=== PATIENT | female | born 1945 | race Caucasian/White ===

== ENCOUNTER → 2016-09-11 | Outpatient (CLI) | payer MEDICARE, OTHER ==
[~2016-09-11] MED LIST: AC500T PO; AML5T PO; ASPI-860 PO; ATN50T PO; BUPR100T8 PO; CETI10TA20 PO; DIPH25CA79 PO; DOCU-243 PO; DULO30CA PO; ENAL20TA PO; GBPN300C PO; HYDR-3702 PO; LACT1CAP8 PO; LD5PT TOP; LVT.1T PO; MAGN400O7 PO; MECL25TA3 PO; METF500T4 PO; MULT-593 PO; MULT1CAP27 PO; MV-M1TAB21 PO; OMEP40CA36; ONDAN4ODT PO; POLY17PO2 PO; SERT100T8 PO; SMV20T PO; SPRN25T PO; TRAM-291ED; TRM50T PO; ZOLP12.546 PO; [UNRECOGNIZED DRUG - OTHER] PO; methylPREDNISolone 80 MG/ML (DEPO MEDROL) VIAL IM ONE
--- NOTE | 2016-09-11 13:14 | PAIN MANAGEMENT ---
Date of note: 09/11/2016 Procedure: Epidural steroid injection This is a 70-year-old patient of Dr. Chip Vazquez. The patient presents with a longstanding history of lumbar back pain. She has radicular symptoms primarily in her right leg. She has had previous fusion in her low lumbar spine. Informed consent was achieved for an epidural steroid injection at L5-S1. Orders for procedure verified. Patient denies any bleeding tendencies. After informed consent obtained, the patient was positioned for the lumbar epidural steroid injection. The area was prepped and draped using aseptic technique. The skin and overlying tissues were localized using 3 mL of 1% Preservative-Free lidocaine using a 25-gauge 1.5-inch needle. A 20-gauge Tuohy needle was advanced, using "loss of resistance" technique, to the epidural space. No blood, cerebral spinal fluid, pain, or paresthesia noted on entry of the epidural space. A 1 mL solution of Depo-Medrol 80 mg was injected slowly without mass volume effect. The patient was placed in supine position 15 minutes prior to being released with proper leg strength and vitals. Pre- and post procedure vital signs stable with no sensory or motor deficit noted. Instruction on followup contact and care provided to the patient.
== END ==
LOC: PMC 10:11
PROVIDERS: ATTEND Family Medicine
DX: M51.16 Intervertebral disc disorders with radiculopathy, lumbar region (principal)
CPT/HCPCS: 62322; J1040

== ENCOUNTER 2016-10-03 11:39 | Outpatient (RCR) | payer MEDICARE, OTHER ==
--- NOTE | 2016-10-02 10:26 | PT/OT/ST INITIAL EVALUATION ---
Department of Health and Human Services Form Approved Health Care Financing Administration OMB No. [id number] PLAN OF CARE/ASSESSMENT FOR OUTPATIENT REHABILITATION (Complete for Initial Claims Only) 1. PATIENT'S NAME Mary Card 2. ACC # [id number] [facility]. [facility] [id number] 4. PROVIDER NO. [id number] 5. TYPE: PT 6. PRIOR HOSPITALIZATION None 7. PRIMARY DX BPPV 8. SECONDARY DX Dizziness and decreased balance 9. ONSET DATE 05/14/2015 10. REFERRAL DATE 10/01/2016 11. SOC. DATE 10/01/2016 12. TIME OF EVAL 15:15 12. REFERRING PHYSICIAN Self-referral 13. CHARGES/UNITS Evaluation 14. G CODES CH 15. PRIOR LEVEL OF FUNCTION; PERTINENT HISTORY (Prior therapy results, reason for referral.) S: Reason for referral: The patient was a self-referral to physical therapy for BPPV. The patient had previously been treated for benign paroxysmal positional vertigo in May 2015 and then again in August 2015. Primary Complaint: The patient reports that she had started experiencing dizziness over the last week and feels that it has increased when moving her head or when lying down in bed or getting up out of bed. Occupational and social health history: The patient is retired. Activity level: Not real good. Personal health rating: She rates overall health as fair. Past medical history: Includes arthritis, osteoarthritis, allergies, previous head injury, depression, high blood pressure and thyroid problems. Patient's Goal: The patient's goal for therapy is to stop the dizziness and headache. 16. INITIAL ASSESSMENT/SAFETY PRECAUTIONS/MEDICAL COMPLICATIONS (Level of function at start of care. Be specific, use objective measures, list problems.) O: APPEARANCE, OBSERVATION AND GAIT: The patient is a 70-year-old female. She presents to physical therapy demonstrating slightly unsteady gait and unsteadiness when going from sitting to standing. The patient reports the last time she was in treatment we treated the left side. TODAY'S TREATMENT: Today performed Hallpike and canalith positional maneuvers to both her right and left side. The patient did demonstrate positive Hallpike on the right with nystagmus and also positive Hallpike on the left with nystagmus. Canalith positions demonstrate dizziness at multiple positions on the right side. The patient was instructed on overall precautions and fitted with a cervical collar. 17. INITIAL POC: (Specify procedures, modalities, short and custodial goals) A: The patient presents with symptoms of right BPPV. PROGNOSIS: the patient is a good candidate for treatment to help resolve symptoms. SHORT TERM GOALS: 1. The patient to be compliant with overall precautions in 2 visits. 2. The patient to report 50% decrease in dizziness changing positions and rolling in 2 weeks. 3. The patient to report complete resolution of symptoms in 4 weeks. P: The patient will be seen 2 times a week over the next 4 weeks. Treatment to include Hallpike and canalith positional maneuvers. May also instruct patient on [place] vestibular exercises. 18. FREQUENCY 2 times a week 19. DURATION 4 weeks 20. FUNCTIONAL LEVEL (End of claim period) 21. PHYSICIAN SIGNATURE ? ON FILE OR ENTER HERE: 22. DATE: I certify the need for these services furnished under this plan of care and if for partial hospitalization. 23. CERTIFICATION FROM THROUGH FORM [facility]-700
[~2016-10-03 11:39] MED LIST changes: -methylPREDNISolone 80 MG/ML (DEPO MEDROL) VIAL IM ONE
== END 2016-10-05 12:00 | disposition home or self-care (01) ==
LOC: PT 11:39
PROVIDERS: ATTEND Family Medicine
DX: H81.13 Benign paroxysmal vertigo, bilateral (principal)
CPT/HCPCS: 95992; 97161; G8978; G8979

== ENCOUNTER → 2016-10-08 | Outpatient (CLI) | payer MEDICARE, OTHER ==
--- NOTE | 2016-10-08 16:50 | Diagnostic Imaging Report ---
EXAMINATION: Left knee, four weightbearing views. Right knee, three weightbearing views. COMPARISON: None. HISTORY: 70-year-old female, left knee pain. FINDINGS: There are vascular calcifications. There is a total left knee prosthesis. The hardware appears intact. There is no identified periprosthetic lucency. The patellae are not subluxed. There is no large left knee joint effusion. There is no identified acute fracture. The medial and lateral compartments of the right knee are not significantly narrowed. The right patella is not subluxed. IMPRESSION: 1. Intact total constrained left knee prosthesis without identified complication. 2. Unremarkable radiographs of the right knee. Dictated by: Dictated on workstation # [id number]
== END ==
LOC: RAD 12:16
PROVIDERS: ATTEND Orthopaedic Surgery
DX: M25.562 Pain in left knee (principal)
CPT/HCPCS: 73564